=== PATIENT | male | born 1950 | race American Indian/Alaskan Native ===

== ENCOUNTER 2021-04-29 10:11 | Outpatient (CLI) | payer MEDICARE ==
--- NOTE | 2021-04-29 11:38 | XRay Report ---
CHEST 2 VIEWS INDICATION / CLINICAL INFORMATION: R06.2 WHEEZING. COMPARISON: None available. FINDINGS: SUPPORT DEVICES: None. HEART / MEDIASTINUM: No significant abnormality. LUNGS / PLEURA: No significant pulmonary or pleural abnormality. No pneumothorax. ADDITIONAL FINDINGS: No significant additional findings. IMPRESSION: 1. No acute findings. Signer Name: Memo Hinds MD Signed: 04/29/2021 11:31 AM Workstation Name: [id number]
== END 2021-04-29 10:12 | disposition home or self-care (01) ==
LOC: XRAY 10:11
PROVIDERS: ATTEND Internal Medicine
DX: R06.2 Wheezing (principal)
CPT/HCPCS: 71046